=== PATIENT | male | born 1995 | race Caucasian/White ===

== ENCOUNTER 2017-10-21 14:44 | Emergency (ER) | payer OTHER ==
[2017-10-21 15:21] VITALS: RESP 20; TEMP 98
[2017-10-21 15:44] LABS: POTASSIUM 4.2 mMol/L (3.5-5.1)
[2017-10-21] MEDS ORDERED: TRAMADOL HYDROCHLORIDE 50 MG TAB PO ONE (15:53)
[2017-10-21] MEDS ORDERED: TRAMADOL HYDROCHLORIDE 50 MG TAB ONE (16:13)
[2017-10-21 16:24] LABS: BASOPHILS % (AUTO) 2 % (0-3); EOSINOPHILS % (AUTO) 5 % (0-9); HEMATOCRIT 41 % (39-53); MEAN CORPUSCULAR VOLUME 84 fL (80-100); MONOCYTES % (AUTO) 6.1 % (0-12); NEUTROPHILS % (AUTO) 48.7 % (37-80)
[2017-10-21 16:48] VITALS: BP 120/74; PULSE 72; O2SAT 98
== END 2017-10-21 16:45 | disposition home or self-care (01) ==
LOC: ED 14:44
DX: S80.01XA Contusion of right knee, initial encounter (principal); W22.03XA Walked into furniture, initial encounter; J06.9 Acute upper respiratory infection, unspecified
CPT/HCPCS: 36415; 71046; 73562; 80048; 85025; 87804; 99283; A9270-GY

== ENCOUNTER 2017-11-15 18:15 | Emergency (ER) | payer OTHER ==
[2017-11-15 18:29] VITALS: BP 150/80; PULSE 92; RESP 16; TEMP 97; O2SAT 96
== END 2017-11-15 19:20 | disposition home or self-care (01) ==
LOC: ED 18:15
DX: L03.213 Periorbital cellulitis (principal)
CPT/HCPCS: 99282